=== PATIENT | male | born 1965 | race Caucasian/White ===

== ENCOUNTER 2021-01-11 09:47 | Outpatient (CLI) | payer SELFPAY | END 2021-01-11 09:48 | disposition home or self-care (01) | LOC: RAD 09:47 | PROVIDERS: ATTEND Internal Medicine Critical Care Medicine | DX: R06.00 Dyspnea, unspecified (principal); R91.8 Other nonspecific abnormal finding of lung field | CPT/HCPCS: 71046 ==

== ENCOUNTER 2021-03-23 09:16 | Outpatient (CLI) | payer OTHER | END 2021-03-23 09:17 | disposition home or self-care (01) | LOC: RAD 09:16 | PROVIDERS: ATTEND Internal Medicine Critical Care Medicine | DX: R06.00 Dyspnea, unspecified (principal); R91.8 Other nonspecific abnormal finding of lung field | CPT/HCPCS: 71046 ==